=== PATIENT | male | born 1990 | race Caucasian/White ===

== ENCOUNTER 2020-12-15 11:52 | Outpatient (REF) | payer OTHER, SELFPAY | END 2020-12-15 11:53 | disposition home or self-care (01) | LOC: HO.LAB 11:52 | PROVIDERS: Visit Provider Internal Medicine | DX: Z20.822 Contact with and (suspected) exposure to COVID-19 (principal) | CPT/HCPCS: 36415; C9803; U0003; U0005 ==

== ENCOUNTER 2021-02-01 15:20 | Outpatient (REF) | payer OTHER, SELFPAY ==
[2021-02-01 15:44] LABS: COVID-19 Test Negative (Negative)
== END 2021-02-01 15:21 | disposition home or self-care (01) ==
LOC: HO.LAB 15:20
PROVIDERS: Visit Provider Internal Medicine
DX: Z20.822 Contact with and (suspected) exposure to COVID-19 (principal)
CPT/HCPCS: 36415; 87635; C9803

== ENCOUNTER 2023-12-09 14:26 | Outpatient (AMB) | payer OTHER, SELFPAY ==
--- NOTE | 2023-12-09 14:29 | A.OFFPC_ITS ---
Vital Signs 12/09/23 14:34 Height 6 ft 7 in Weight 231 lb 4 oz BMI 26.0 BP 134/80 Blood Pressure Location Rt brachial Position Sitting Pulse 77 Pulse Source Pulse Oximeter Pulse Oximetry (%) 97 Oxygen Delivery Method Room Air Intake Visit Reasons: Foot pain Intake Note: Pt is here today for pain in both feet, pt states its an ongoing pain. Allergies No Known Allergies Allergy (Verified 12/09/23 14:38) Medication List - Last Reconciled 12/09/23 by JOHANNA Ocampo No Known Home Meds Tobacco use date assessed: 12/09/23 Dental Screening Dental Screen Date: 12/09/23 Did you have a dental visit in the last 12 months?: Yes Did you have a dental problem in the last 6 months where you did not have access to dental care?: No Was dental information given to patient?: Patient has dentist HPI HPI Comments History of Present Illness Details Patient is a 33-year-old male who I am meeting for the 1st time. Patient has a past medical/surgical history significant for compound fracture of the right ankle. Patient has no other significant past medical history. He has a chief complaint today of bilateral foot pain. He works on his feet all day and states that over the past year he has developed pain on the bottom of his feet. He states that he feels like he is applying a lot of pressure to the outside of his feet due to his history of surgery. He states that he develops calluses that then become very painful. Has not tried any medication for this but does state that shoe inserts provide some relief. He also states that he has tried shaving down the calluses that also give some relief. He is now developing similar symptoms on his on his left foot. Patient denies any tingling or numbness. Patient has no trauma history to his left foot. [facility] Medical History Open fracture of right foot Surgical History History of ankle surgery Social History Housing: House e-Cigarette/Vaping Use: Never Used service: No Current occupational status: employed Cognitive needs: No Hearing needs: No Vision needs: No Questionnaire AUDIT C Alcohol Use Questionnaire (AUDIT-C) 1. How often do you have a drink containing alcohol?: Never 3. How often do you have six or more drinks on one occasion?: Never Total Score: 0 Score Reviewed/Action Taken: Yes Review of Systems Const All systems reviewed & are unremarkable except as noted in HPI and below Musc Denies numbness and Denies tingling Skin/Breast Reports other (Calluses on the bottom his feet bilateral. ) Neuro Denies numbness and Denies tingling Physical exam (Primary Care) Care Plan Goal for BP management: Vital signs reviewed stable. Const Other: Appearance: Alert.? Oriented X3.? No acute distress.? Head: Normocephalic, atraumatic, Neck: Normal inspection.? Neck supple.? CVS: Normal heart rate and rhythm.? Pulses normal.? Respiratory: No respiratory distress.? Breath sounds normal.? Skin: Skin warm and dry.? Normal skin turgor. Patient has thick harden layer of skin on ventral aspect of feet bilaterally. Patches of hardened skin tender to palpation. No erythema or discharge. Extremities: No lower extremity edema.? No calf ttp. 5/5 strength to bilateral upper and lower extremities Neuro: Oriented X 3.? No motor deficit.? No sensory deficit. CN 2-12 intact Assessment and Plan Assessment & Plan (1) Bilateral foot pain: Comment: Will obtain x-ray of patient's bilateral feet. Patient will also get referral to Podiatry. He has been educated that he can use [id number] cushions for his feet specific for calluses or corns. Patient would not like to utilize any medication at this time. Code(s): M79.671 - Pain in right foot; M79.672 - Pain in left foot Plan: Take your medications as prescribed. If you were prescribed antibiotics today, it is important that you take your medication to their entirety, do not skip any doses, do not finish them early. Follow-up with your primary care provider this week. Return to the emergency department with new or worsening symptoms. Such as fevers, chills, chest pain, shortness of breath, nausea, vomiting, dizziness, headache, vision changes, lethargy In case of emergency call 911 Plan Will follow-up with x-ray results. Patient will have physical exam in 3-4 months. Orders: Orders XR foot RT min 3V Today M79.671 - Pain in right foot XR foot LT min 3V Today M79.671 - Pain in right foot, M79.672 - Pain in left foot Referrals Podiatry Referral M79.671 - Pain in right foot, M79.672 - Pain in left foot Coding Level of Care Code Est Pt Level 3 (19109) Diagnoses Bilateral foot pain M79.671; M79.672 Time Spent (min) 25
[2023-12-09 14:34] VITALS: BP 134/80; PULSE 77; O2SAT 97; BMI 26.0
== END 2023-12-09 15:22 | disposition home or self-care (01) ==
LOC: HO.HMGC 14:26
PROVIDERS: PCP Nurse Practitioner Primary Care; Visit Provider Nurse Practitioner Primary Care
DX: M79.671 Pain in right foot (principal); M79.672 Pain in left foot
CPT/HCPCS: 99213

== ENCOUNTER 2023-12-09 14:50 | Outpatient (REF) | payer OTHER, SELFPAY ==
--- NOTE | ~2023-12-09 | XR_ITS ---
EXAMINATION: XR FOOT, RIGHT CLINICAL INFORMATION: Pain. COMPARISON: None available. TECHNIQUE: AP, lateral, and oblique views of the right foot. FINDINGS: There is mild bony demineralization. 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 There is mild flattening of the talar dome. No acute fracture, dislocation or joint effusion is seen. Boehler's angle is normal. There is no calcaneal spur. No bone erosion is seen. There is no focal soft tissue swelling, gas or foreign body. XR/XR foot RT min 3V IMPRESSION: 1. No fracture, dislocation or right ankle joint effusion is seen. 2. 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
== END 2023-12-09 14:51 | disposition home or self-care (01) ==
LOC: HO.HMGCX 14:50
PROVIDERS: PCP Nurse Practitioner Primary Care; Visit Provider Nurse Practitioner Primary Care
DX: M79.671 Pain in right foot (principal)
CPT/HCPCS: 73630